=== PATIENT | male | born 1980 | race Caucasian/White ===

== ENCOUNTER 2017-06-05 21:22 | Emergency (ER) | payer OTHER ==
[~2017-06-05] VITALS: Ht 162.6 cm; Wt 77.1 kg
[2017-06-05 21:25] VITALS: TEMP 36.9; Ht 162.6 cm; Wt 77.1 kg
[2017-06-05] MEDS ORDERED: CEFTRIAXONE SOD INJ 1 GM ADDVIAL IV STA (21:29)
[2017-06-05] MEDS ORDERED: KETOROLAC TROMETHAMINE 30 MG/ML VIAL IV STA (21:29)
[2017-06-05] MEDS ORDERED: SODIUM CHLORIDE 0.9% 1000ML 1,000 ML IV STA (21:35)
[2017-06-05] MEDS ORDERED: ACET-1256 PO (21:42)
[2017-06-05] MEDS ORDERED: NIAC50TA9 PO (21:42)
[2017-06-05] MEDS ORDERED: IBUP-103 PO (21:42)
[2017-06-05] MEDS ORDERED: VANCOMYCIN INJ 1,550 MG in SODIUM CHLORIDE 0.9% 500ML 500 ML IV STA (22:09)
[2017-06-05] MEDS ORDERED: VANCOMYCIN CONSULT ACTIVE PRN (22:15)
--- NOTE | 2017-06-05 22:16 | DIAGNOSTIC IMAGING REPORT ---
RIGHT ELBOW 3 VIEWS CLINICAL HISTORY: Right elbow pain and swelling. FINDINGS: 3 views of the right elbow are obtained. No prior studies are available for comparison at the time of dictation. The skeletal structures are well mineralized. No fracture is seen. The joint spaces are well-maintained. There is no joint effusion. Soft tissue edema is present around the elbow. IMPRESSION: Soft tissue swelling with no acute bony abnormality identified. Electronically signed by: Lincoln Carey M.D. 06/05/2017 10:14 PM Dictated Date/Time: 06/05/2017 10:14 PM
[2017-06-05 22:23] LABS: BASO % 0.8 %; BASO ABS # 0.08 K/uL (0-0.2); EOS % 2.1 %; EOS ABS # 0.21 K/uL (0-0.5); HEMATOCRIT 38.3 % (42-52); HEMOGLOBIN 13.4 g/dL (14.0-18.0); IG# 0.02 K/uL (0.00-0.02); LYMPH % 17.7 %; LYMPH ABS # 1.79 K/uL (1.2-3.4); MEAN CELL VOLUME 87.6 fL (80-100); MEAN CORPUSCULAR HEMOGLOBIN 30.7 pg (25-34); MEAN PLATELET VOLUME 10.7 fL (7.4-10.4); MONO % 8.5 %; MONO ABS # 0.86 K/uL (0.11-0.59); NEUT % 70.7 %; NEUT ABS # 7.17 K/uL (1.4-6.5); PLATELET COUNT 187 K/uL (130-400); RED CELL DISTRIBUTION WIDTH CV 12.5 % (11.5-14.5); RED CELL DISTRIBUTION WIDTH SD 40.6 fL (36.4-46.3); WHITE BLOOD COUNT 10.13 K/uL (4.8-10.8)
[2017-06-05 22:49] LABS: CALCIUM 9.2 mg/dl (8.5-10.1); CREATININE 1.33 mg/dl (0.60-1.40); URIC ACID 5.6 mg/dl (2.6-7.2)
[2017-06-05 23:07] LABS: ALBUMIN 3.8 gm/dl (3.4-5.0); ALKALINE PHOSPHATASE 72 U/L (45-117); ALT/SGPT 41 U/L (12-78); AST/SGOT 29 U/L (15-37); TOTAL PROTEIN 7.5 gm/dl (6.4-8.2)
--- NOTE | 2017-06-06 00:08 | EMERGENCY ROOM VISIT NOTE ---
History First contact with patient: 21:27 Chief Complaint: ARM PAIN Stated Complaint: SWELLING IN ELBOW, REDNESS, SEVERE PAIN, HEADACHE History of Present Illness The patient is a 37 year old male who presents to the Emergency Room with complaints of right elbow pain and swelling for the past few days he developed body aches fever and headache today. No temperature was taken. He took Motrin at 11 AM. 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 No history of bursitis or joint infection to this elbow before. Patient states in 2014 he broke his ankle requiring surgery and ended up with a joint infection requiring a PICC line and antibiotics for 8 weeks. He states this was all done at [facility]. He states he comes here now as he does not like to go to that hospital anymore despite the fact he went there a few days ago for neck pain. Patient denies IV drug abuse, chest pain, dyspnea, cough, congestion, abdominal pain, numbness, tingling, injury to the right elbow. Patient is adamant he does not use IV drugs and has never done this in the past. Review of Systems An 10 system review of systems was completed with positives and pertinent negatives listed in the HPI. Past Medical/Surgical History Right ankle fracture requiring surgery with infection requiring PICC line and antibiotics for 8 weeks and 2015 Social History Smoking Status: Former Smoker Alcohol Use: occasionally Drug Use: none Marital Status: Housing Status: lives with family Occupation Status: employed Current/Historical Medications Scheduled Cephalexin Monohydrate (Keflex), 500 MG PO QID Niacin (Niacin), 1 TAB PO DAILY Sulfa/Trimethoprim (Bactrim Ds 800MG/160MG), 1 TAB PO BID Scheduled PRN Acetaminophen (Tylenol), 1,000 MG PO Q6 PRN for Pain Ibuprofen Tab (Advil), 400 MG PO Q6 PRN for Pain Physical Exam Vital Signs Date Time Temp Pulse Resp B/P (MAP) Pulse Ox O2 Delivery O2 Flow Rate FiO2 06/06/17 03:29 83 18 116/85 97 06/06/17 02:27 63 18 106/46 97 Room Air 06/06/17 02:13 86 18 150/87 96 Room Air 06/06/17 01:20 85 20 123/79 98 Room Air 06/05/17 23:25 89 18 127/77 98 Room Air 06/05/17 21:25 36.9 90 16 130/87 98 Room Air Physical Exam VITALS: Vitals are noted on the nurse's note and reviewed by myself. Vital signs stable. GENERAL: White male with multiple tattoos, in no acute distress, nondiaphoretic , well-developed well-nourished. SKIN: Left elbow erythematous and slightly edematous with erythema extending to the proximal forearm and mid humeral area that is warm to touch without palpable abscess. No lymphangitis. Axillary lymph node tender to palpation. The rest of the skin was without rashes, erythema, edema, or bruising. There is no tenting of the skin. Capillary reflex less than 2 seconds. HEAD: Normocephalic atraumatic. EARS: External auditory canals clear, tympanic membranes pearly haines without erythema or effusion bilaterally. EYES: Pupils equal round and reactive to light and accommodation. Conjunctivae without injection, sclerae without icterus. Extraocular movements intact. NOSE: Patent, turbinates without inflammation or discharge. MOUTH: Mucous membranes moist. Pharynx without erythema or exudate. Uvula midline. Airway patent. Tongue does not deviate. NECK: Supple without nuchal rigidity. No lymphadenopathy. No thyromegaly. Cervical spine is nontender. No JVD. HEART: Regular rate and rhythm without murmurs gallops or rubs. LUNGS: Clear to auscultation bilaterally without wheezes, rales or rhonchi. No retractions or accessory muscle use. ABDOMEN: Positive bowel sounds x 4. Normal tympanic percussion. Soft, nontender, without masses or organomegaly. Salmeron sign negative. No guarding or rebound tenderness. No CVA tenderness MUSCULOSKELETAL: No muscle atrophy noted. Left elbow erythematous and slightly edematous with erythema extending to the proximal forearm and mid humeral area that is warm to touch without palpable abscess. No lymphangitis. Axillary lymph node tender to palpation. Left elbow minimally tender to palpation with increased pain with range of motion. Radial pulses +2 equal and present bilaterally. NEURO: Patient was alert and oriented to person place and time. Normal sensation to light and sharp touch. No focal neurological deficits. Medical Decision & Procedures Laboratory Results 06/05/17 22:00 Red Blood Count 4.37, Mean Corpuscular Volume 87.6, Mean Corpuscular Hemoglobin 30.7, Mean Corpuscular Hemoglobin Concent 35.0, Mean Platelet Volume 10.7, Neutrophils (%) (Auto) 70.7, Lymphocytes (%) (Auto) 17.7, Monocytes (%) (Auto) 8.5, Eosinophils (%) (Auto) 2.1, Basophils (%) (Auto) 0.8, Neutrophils # (Auto) 7.17, Lymphocytes # (Auto) 1.79, Monocytes # (Auto) 0.86, Eosinophils # (Auto) 0.21, Basophils # (Auto) 0.08 06/05/17 22:00 Test 06/05/17 22:00 06/05/17 22:04 White Blood Count 10.13 K/uL (4.8-10.8) Red Blood Count 4.37 M/uL (4.7-6.1) Hemoglobin 13.4 g/dL (14.0-18.0) Hematocrit 38.3 % (42-52) Mean Corpuscular Volume 87.6 fL (80-100) Mean Corpuscular Hemoglobin 30.7 pg (25-34) Mean Corpuscular Hemoglobin Concent 35.0 g/dl (32-36) Platelet Count 187 K/uL (130-400) Mean Platelet Volume 10.7 fL (7.4-10.4) Neutrophils (%) (Auto) 70.7 % Lymphocytes (%) (Auto) 17.7 % Monocytes (%) (Auto) 8.5 % Eosinophils (%) (Auto) 2.1 % Basophils (%) (Auto) 0.8 % Neutrophils # (Auto) 7.17 K/uL (1.4-6.5) Lymphocytes # (Auto) 1.79 K/uL (1.2-3.4) Monocytes # (Auto) 0.86 K/uL (0.11-0.59) Eosinophils # (Auto) 0.21 K/uL (0-0.5) Basophils # (Auto) 0.08 K/uL (0-0.2) RDW Standard Deviation 40.6 fL (36.4-46.3) RDW Coefficient of Variation 12.5 % (11.5-14.5) Immature Granulocyte % (Auto) 0.2 % Immature Granulocyte # (Auto) 0.02 K/uL (0.00-0.02) Erythrocyte Sedimentation Rate 4 mm/hr (0-14) Anion Gap 5.0 mmol/L (3-11) Est Creatinine Clear Calc Drug Dose 72.1 ml/min Estimated GFR () 79.1 Estimated GFR (Non- 68.3 BUN/Creatinine Ratio 10.2 (10-20) Uric Acid 5.6 mg/dl (2.6-7.2) Calcium Level 9.2 mg/dl (8.5-10.1) Total Bilirubin 0.4 mg/dl (0.2-1) Direct Bilirubin < 0.1 mg/dl (0-0.2) Aspartate Amino Transf (AST/SGOT) 29 U/L (15-37) Alanine Aminotransferase (ALT/SGPT) 41 U/L (12-78) Alkaline Phosphatase 72 U/L (45-117) C-Reactive Protein 4.69 mg/dl (0-0.29) Total Protein 7.5 gm/dl (6.4-8.2) Albumin 3.8 gm/dl (3.4-5.0) Bedside Lactic Acid Venous 0.59 mmol/L (0.90-1.70) Medications Administered Medications (Trade) Dose Ordered Sig/Juliana Route Start Time Stop Time Status Last Admin Dose Admin Ketorolac Tromethamine (Toradol Inj) 30 mg NOW STAT IV 06/05/17 21:29 06/05/17 21:36 DC 06/05/17 22:13 30 MG Ceftriaxone Sodium (Rocephin Inj) 1 gm NOW STAT IV 06/05/17 21:29 06/05/17 21:36 DC 06/05/17 22:12 1 GM Sodium Chloride 1,000 ml @ 999 mls/hr Q1H1M STAT IV 06/05/17 21:35 06/05/17 22:35 DC 06/05/17 22:13 999 MLS/HR Vancomycin HCl 1550 mg/Sodium Chloride 531 ml @ 200 mls/hr ONE STAT IV 06/05/17 22:09 06/06/17 00:51 DC 06/05/17 23:29 200 MLS/HR Cephalexin Monohydrate (Keflex 500MG Home Pack) 1 homepack NOW ONCE PO 06/06/17 00:15 06/06/17 00:16 DC 06/06/17 03:27 1 HOMEPACK Trimethoprim/ Sulfamethoxazole (Sulfameth/ Trimeth Ds 800/ 160MG Home Pack) 1 homepack UD ONCE PO 06/06/17 00:15 06/06/17 00:16 DC 06/06/17 03:27 1 HOMEPACK Diphenhydramine HCl (Benadryl Inj) 50 mg NOW STAT IV 06/06/17 02:14 06/06/17 02:15 DC 06/06/17 02:17 50 MG Ondansetron HCl (Zofran Inj) 4 mg NOW STAT IV 06/06/17 02:30 06/06/17 02:31 DC 06/06/17 02:34 4 MG Sodium Chloride 1,000 ml @ 999 mls/hr Q1H1M STAT IV 06/06/17 02:30 06/06/17 03:30 DC 06/06/17 02:30 999 MLS/HR ED Course Prior records reviewed and summarized as above. Triage Nursing notes reviewed. The patient's history was concerning for swelling and redness of the skin. Differential diagnosis: Etiologies such as septic joint, bursitis, cellulitis, abscess, MRSA infection, DVT, necrotizing fasciitis, dermatitis, drug eruption, as well as others were entertained.. Physical examination: As above ER treatment provided: Rocephin, Toradol, vancomycin On reassessment the patient felt better. Diagnostics interpreted by me: The labs revealed no leukocytosis. Negative lactic acid. Blood cultures pending Imaging studies: X-ray of the elbow with no acute fracture, effusion or dislocation per my interpretation, soft tissue swelling Ultrasound of the arm negative DVT. Lymph node present I attempted to get the records from [facility] and was informed that they have no records of this orthopedic procedure he had in 2015 with a joint infection per my pathology secretary. This appears to be right arm cellulitis. Patient had no signs of abscess. He was neurovascularly and neurologically intact. No DVT. No leukocytosis. He was started on antibiotics. He is advised to follow-up with family care in 2 days for recheck or here in the ER sooner for spreading infection, fevers, worsening signs or symptoms or as needed. A skin marker was used to outline the infection. He was advised to return to the ER immediately if the infection spreads outside this. Upon discharge and the finishing the vancomycin and the patient became red and slightly itchy. He states his son has had red man syndrome from vancomycin before. He was given Benadryl and hydration. Shortly after receiving the Benadryl he became very anxious and nervous and hyperventilated. He was given fluids to drink and food to eat. He was observed for another hour. Symptoms did resolve. He was informed if he needs vancomycin in the future to make sure it is given very slowly. Patient ambulated around the ER without difficulties requested to leave. He was advised to take medications as directed and if he needs vancomycin in the future to inform him of his reaction. He is advised to return to the ER immediately for any problems or concerns. He was discharged and his grandfather's care in stable condition. By the evaluation outlined above emergent etiologies such as abscess, necrotizing fasciitis, DVT, as well as others were deemed relatively unlikely. The pt informed about the findings as listed above. All questions were answered and pleased with the treatment. Return instructions were outlined and the patient was discharged in stable condition. Outpatient prescription management: Keflex, Bactrim Referral: The patient was referred back to primary care physician for follow-up in 2 to 3 days for a recheck of the current condition. Case reviewed with my attending The chart was completed utilizing [employer] Speech voice recognition software. Grammatical errors, random word insertions, pronoun errors, and incomplete sentences are an occassional consequence of this system due to software limitations, ambient noise, and hardware issues. Any formal questions or concerns about the content, text, or information contained within the body of this dictation should be directly addressed to the physician catering administrative assistant for clarification. Medical Decision As above Medication Reconcilliation Current Medication List: was personally reviewed by me Blood Pressure Screening Patient's blood pressure: Normal blood pressure Impression Primary Impression: Right arm cellulitis Departure Information Dispostion Home / Self-Care Condition GOOD Prescriptions Sulfa/Trimethoprim (Bactrim Ds 800MG/160MG) Tab 1 TAB PO BID for 9 Days, #18 TAB Prov: Kia Aguilar PA-C 06/06/17 Cephalexin Monohydrate (KEFLEX) 500 Mg Cap 500 MG PO QID for 9 Days, #36 CAP Prov: Kia Aguilar PA-C 06/06/17 Referrals No Doctor, Assigned (PCP) Patient Instructions My [facility] Additional Instructions If your infection spreads outside the marker done today around your infection then return to the ER for further evaluation and treatment Cephalexin(Keflex) 500mg: Take one pill four times daily for 10 days for your skin infection. All antibiotics can cause diarrhea. If this occurs and you feel worse or it does not resolve in 1-2 days follow up with your doctor or return to the Emergency Department as this could be signs of serious underlying problems. Any medication can cause an allergic reaction, stop the pills immediately and return to the ER for rash, hives, breathing difficulties, or swelling. Trimethoprim-Sulfamethoxazole(Bactrim DS): Take one pill twice daily for 10 days for your skin infection. All antibiotics can cause diarrhea. If this occurs and you feel worse or it does not resolve in 1-2 days follow up with your doctor or return to the Emergency Department as this could be signs of serious underlying problems. Any medication can cause an allergic reaction, stop the pills immediately and return to the ER for rash, hives, breathing difficulties, or swelling. Ibuprofen(Motrin, Advil) may be used for fever or pain. Use 600mg every six hours as needed. Take with food. Avoid using more than 2400mg in a 24 hour period. Do not use 2400mg per day for more than three consecutive days without physician direction. Prolonged inappropriate use can lead to stomach upset or ulcers. (AND/OR) Acetaminophen(Tylenol) may be used for fever or pain. Use 1000mg every six hours as needed. Avoid using more than 4000mg in a 24 hour period. Warm compresses to the affected area 4 times daily for 15-20 minutes. Rest and drink plenty of fluids. Continue current medications. Return to the ER for severe pain, persistent fevers, spreading redness, or any worsening of your condition. Follow up with your primary physician within 2-3 days for a recheck of the current condition.
[2017-06-06] MEDS ORDERED: CEPH500C2 PO (00:09)
[2017-06-06] MEDS ORDERED: SULF800T23 PO (00:09)
[2017-06-06] MEDS ORDERED: CEPHALEXIN 500MG HOME PACK 1 EA BTL PO ONE (00:15)
[2017-06-06] MEDS ORDERED: SEPTRA DS HOME PACK 1 EA VIAL PO ONE (00:15)
[2017-06-06] MEDS ORDERED: DiphenhydrAMINE HCL 50 MG/ML VIAL IV STA (02:14)
[2017-06-06] MEDS ORDERED: ONDANSETRON INJ 2 MG/ML 2 ML VIAL IV STA (02:30)
[2017-06-06] MEDS ORDERED: ONDANSETRON INJ 2 MG/ML 2 ML VIAL ONE (02:30)
[2017-06-06] MEDS ORDERED: SODIUM CHLORIDE 0.9% 1000ML 1,000 ML IV STA (02:30)
[2017-06-06 03:29] VITALS: BP 116/85; PULSE 83; O2SAT 97
--- NOTE | 2017-06-06 06:28 | DIAGNOSTIC IMAGING REPORT ---
ULTRASOUND R VENOUS DOPPLER UPR EXT UNILATERAL CLINICAL HISTORY: PAIN/SWELLING COMPARISON STUDY: No previous studies for comparison. FINDINGS: No intraluminal thrombus was visualized. The internal jugular, subclavian, axillary, cephalic, brachial, basilic, radial, and ulnar veins were patent. Incidentally noted is a small lymph node within the distal upper arm measuring 6 x 5 x 5 mm. IMPRESSION: No evidence of right upper extremity DVT Electronically signed by: Evan Simms M.D. 06/06/2017 6:27 AM Dictated Date/Time: 06/06/2017 6:26 AM
== END 2017-06-06 03:29 | disposition home or self-care (01) ==
LOC: C.EDB 21:25 → C.EDA 06-06 03:29
DX: L03.113 Cellulitis of right upper limb (principal); Z87.891 Personal history of nicotine dependence